=== PATIENT | female | born 1970 | race Caucasian/White ===

== ENCOUNTER 2016-07-21 07:12 | Emergency (ER) | payer OTHER ==
[2016-07-21 07:25] VITALS: BP 142/87; PULSE 78; RESP 20; TEMP 98.2; O2SAT 95
--- NOTE | 2016-07-21 07:51 | UCPHY ---
H & P Time Seen by Provider: 07/21/16 07:41 Patient Type: Established HPI/ROS: This patient presents with a chief complaint of left eye irritation associated with some watery discharge, redness and intermittent blurring. Symptoms began 3 days ago And have been associated with some nasal congestion minimal sore throat but no significant cough. She has not had a fever. Initially symptoms began in the left eye but now are involving the right although to a lesser degree. Smoking Status: Never smoked Physical Exam: This is a well-developed well-nourished female who is in no acute distress. She is alert, appropriate and has a normal mental status. There is slight injection of the conjunctiva on the left but none that I can detect on the right. There is no photophobia. There is no evidence of purulent discharge. Pupils are equal round reactive to light. Pharynx is normal, nose is normal and the neck is normal. Constitutional: Initial Vital Signs Temperature (C) 36.8 C 07/21/16 07:22 Heart Rate 78 07/21/16 07:22 Respiratory Rate 20 07/21/16 07:22 Blood Pressure 142/87 H 07/21/16 07:22 O2 Sat (%) 95 07/21/16 07:22 O2 Delivery Mode Room Air Allergies/Adverse Reactions: amoxicillin [Amoxicillin] Allergy (Mild, Verified 07/21/16 07:16) Rash erythromycin base Allergy (Mild, Verified 07/21/16 07:16) Other-Enter Comments azithromycin Allergy (Verified 07/21/16 07:16) Bleach (Sodium Hypochlorite) Allergy (Verified 07/21/16 07:16) shellfish derived Allergy (Verified 07/21/16 07:16) Home Medications: Medication Instructions Recorded Simvastatin [Zocor 10 mg] 06/15/12 Synthroid 03/13/14 Coq-10 04/05/16 Multivitamin 04/05/16 VITAMIN D 04/05/16 Probiotic 04/21/16 Gentamicin 0.3% [Gentak 0.3%] 2 drops EACHEYE Q4H #1 opht.btl 07/21/16 Medical Decision Making Differential Diagnosis: This patient probably has a viral conjunctivitis as opposed to an allergic problem is not clear currently. I find nothing that would suggest that this is a serious problem. Departure - Departure Disposition: Home, Routine, Self-Care Clinical Impression: Conjunctivitis Qualifiers: Conjunctivitis type: acute Acute conjunctivitis type: unspecified Laterality: bilateral Qualifier Code: (H10.33) Unspecified acute conjunctivitis, bilateral Condition: Good Instructions: Conjunctivitis (ED), How to Use Eye Drops (ED) Additional Instructions: If your symptoms have not improved in 3 or 4 days or if they have not completely resolved in 7 days you should be re-evaluated. If the meantime your symptoms worsen you should be seen right away. Referrals: Liz Hernandez MD [Primary Care Provider] - As per Instructions Prescriptions: Gentamicin 0.3% [Gentak 0.3%] 2 drops EACHEYE Q4H #1 opht.btl - PQRS PQRS Measurement: Not applicable
== END 2016-07-21 07:53 | disposition home or self-care (01) ==
LOC: CED 07:12
DX: H10.9 Unspecified conjunctivitis (principal)
CPT/HCPCS: 99214-PO; G0463-PO

== ENCOUNTER 2016-09-12 18:29 | Emergency (ER) | payer OTHER ==
[2016-09-12 18:44] VITALS: BP 132/75; PULSE 79; RESP 16; TEMP 98.2; O2SAT 95
--- NOTE | 2016-09-12 19:19 | UCPHY ---
H & P Time Seen by Provider: 09/12/16 19:01 Patient Type: Established HPI/ROS: This patient has a sore throat of 4 days duration. Intensity is 4/10 achy in nature. She has no other associated symptoms was concerned about potential strep because of exposure to a child with strep 2 weeks ago. She has partial relief from [id number] analgesics. No other exacerbating factors. ROS: No high fevers or chills. No significant fatigue. HEENT: No nasal congestion. No ear pain. Pulmonary: No cough. Integumentary: No skin rash GI: No nausea vomiting. 7 point ROS is otherwise negative. Smoking Status: Never smoked Physical Exam: Physical Exam Vital signs are normal. General: No acute distress HEENT: Nose: Clear discharge bilaterally. No sinus tenderness to percussion. Ears: External canals and tympanic membranes are clear with no erythema or abnormal findings bilaterally. Oropharynx: No erythema or exudates. No dysphonia. No drooling or stridor. Neck: Supple with no meningismus. No lymphadenopathy. Eyes: Pupils equal and react to light. Extraocular motions are intact. Lungs: Clear to auscultation bilaterally with no rales, rhonchi or wheeze. No respiratory distress. Cardiac: Regular rate and rhythm with no murmur gallop or rub Skin: No rash or pallor. Neuro: Alert with no focal deficits noted. Initial differential diagnosis: Viral pharyngitis versus strep pharyngitis Constitutional: Initial Vital Signs Temperature (C) 36.8 C 09/12/16 18:42 Heart Rate 79 09/12/16 18:42 Respiratory Rate 16 09/12/16 18:42 Blood Pressure 132/75 H 09/12/16 18:42 O2 Sat (%) 95 09/12/16 18:42 O2 Delivery Mode Room Air Allergies/Adverse Reactions: amoxicillin [Amoxicillin] Allergy (Mild, Verified 09/12/16 18:45) Rash erythromycin base Allergy (Mild, Verified 09/12/16 18:45) Other-Enter Comments azithromycin Allergy (Verified 09/12/16 18:45) Bleach (Sodium Hypochlorite) Allergy (Verified 09/12/16 18:45) shellfish derived Allergy (Verified 09/12/16 18:45) Home Medications: Medication Instructions Recorded Simvastatin [Zocor 10 mg] 06/15/12 Synthroid 03/13/14 Coq-10 04/05/16 Multivitamin 04/05/16 VITAMIN D 04/05/16 Probiotic 04/21/16 Medical Decision Making ED Course/Re-evaluation: Rapid strep is negative. I counseled the patient regarding viral pharyngitis. - Data Points Laboratory Results: 09/12/16 09/12/16 Unknown 18:50 Group A Strep Screen NEGATIVE (NEGATIVE) Group A Strep DNA Pending Departure - Departure Disposition: Home, Routine, Self-Care Clinical Impression: Viral pharyngitis Condition: Good Instructions: Pharyngitis (ED) Additional Instructions: Diagnosis: Viral pharyngitis Plan: Humidifier Ibuprofen and Tylenol for sore throat as needed. Gargle salt water Return for any significant worsening despite treatment plan - PQRS PQRS Measurement: NA
== END 2016-09-12 19:30 | disposition home or self-care (01) ==
LOC: CED 18:29
DX: J02.9 Acute pharyngitis, unspecified (principal)
CPT/HCPCS: 87880-PO; 99214-PO; G0463-PO

== ENCOUNTER 2017-04-22 15:00 | Emergency (ER) | payer OTHER ==
[2017-04-22 15:19] VITALS: RESP 20; TEMP 98.1
--- NOTE | 2017-04-22 15:30 | EDPHY ---
H & P Time Seen by Provider: 04/22/17 15:15 HPI/ROS: 46-year-old female presents complaining of right arm achiness. She states she had a small cut to her thumb several weeks ago that suddenly developed swelling and redness just over the last couple of days, she was seen at an urgent care where she was started on antibiotics. Her swelling and redness have markedly improved however she was told if she had pain in her arm she should seek further care. She denies red streaks up her arm she denies fever or chills she admits her redness and swelling or markedly improved since starting antibiotics approximately 36 hours ago. Review of systems As per HPI General no fever no chills no weakness HEENT no eye pain no eye discharge. No eye redness, no sore throat Respiratory no cough, no shortness of breath Cardiac no chest pain, no peripheral edema GI no abdominal pain, no diarrhea, no constipation, no nausea, no vomiting no flank pain, no hematuria, no dysuria Musculoskeletal positive myalgias, no joint pain Heme no easy bruising, no easy bleeding Endo no polyuria, no polydipsia Skin no rashes, no pruritus Neuro no syncope, no dizziness, no headaches Psych is no suicidal ideation, no homicidal ideation Past Medical/Surgical History: Hyperlipidemia Social History: Denies alcohol or drug use Smoking Status: Never smoked Physical Exam: 46-year-old female Alert and oriented in no acute distress nontoxic appearance, afebrile Atraumatic normocephalic Neck no JVD Lungs clear to auscultation, no respiratory distress Heart regular rate and rhythm Extremities no cyanosis clubbing edema Right hand-area outlined where prior cellulitis had been 48 hours ago, markedly improved slight erythema slight swelling Full range of motion of right thumb, good capillary refill No involvement of dorsum of hand, no lymphangitic streaks No palpable lymph nodes in axilla on right No swelling of right arm Constitutional: Initial Vital Signs Temperature (C) 36.7 C 04/22/17 15:15 Heart Rate 100 04/22/17 15:15 Respiratory Rate 20 04/22/17 15:15 Blood Pressure 149/95 H 04/22/17 15:15 O2 Sat (%) 93 04/22/17 15:15 O2 Delivery Mode Room Air Allergies/Adverse Reactions: amoxicillin [Amoxicillin] Allergy (Mild, Verified 04/22/17 15:14) Rash erythromycin base Allergy (Mild, Verified 04/22/17 15:14) Other-Enter Comments azithromycin Allergy (Verified 04/22/17 15:14) Bleach (Sodium Hypochlorite) Allergy (Verified 04/22/17 15:14) shellfish derived Allergy (Verified 04/22/17 15:14) Home Medications: Medication Instructions Recorded Simvastatin [Zocor 10 mg] 06/15/12 Synthroid 03/13/14 Coq-10 04/05/16 Multivitamin 04/05/16 VITAMIN D 04/05/16 Probiotic 04/21/16 Medical Decision Making ED Course/Re-evaluation: Patient seen and evaluated for right arm pain following the initiation of antibiotics for a localized cellulitis to the right thumb approximately 36 hours ago. Physical exam she is a markedly improving cellulitis, no lymphangitic streaks, no lymph nodes in the axilla and no skin changes to the right arm. Impression Improving right thumb cellulitis Plan Continue current antibiotics Education on reasons to return including lymphangitic streaks, new rash, no swelling, worsening pain. Follow up with primary care physician Differential Diagnosis: Cellulitis, lymphangitis, necrotizing fasciitis Departure - Departure Disposition: Home, Routine, Self-Care Clinical Impression: Arm pain Condition: Good Instructions: Cellulitis (ED) Referrals: Liz Hernandez MD [Primary Care Provider] - As per Instructions
[2017-04-22 15:44] VITALS: BP 145/78; PULSE 95; O2SAT 94
== END 2017-04-22 15:44 | disposition home or self-care (01) ==
LOC: CED 15:00
DX: M79.601 Pain in right arm (principal)

== ENCOUNTER 2017-04-26 15:03 | Emergency (ER) | payer OTHER ==
[2017-04-26 15:19] VITALS: BP 148/89; PULSE 80; RESP 16; TEMP 97.7; O2SAT 95
--- NOTE | 2017-04-26 15:37 | EDPHY ---
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 Patient denies any other pain or injury. Her last tetanus shot was within 10 years. REVIEW OF SYSTEMS: As in HPI, and all other systems reviewed and are negative Smoking Status: Never smoked Physical Exam: General Appearance: Alert and no distress. Eyes: Pupils equal and round no injection. Musculoskeletal: Neck is supple and nontender. Extremities: Right index finger with 1 cm laceration along ulnar side between PIP and PIP joint, full range of motion at the PIP and PIP with flexion and extension against resistance without difficulty, distal sensation intact, distal cap refill less than 3 seconds. Skin: No rashes or lesions except as described above. Constitutional: Initial Vital Signs Temperature (C) 36.5 C 04/26/17 15:15 Heart Rate 80 04/26/17 15:15 Respiratory Rate 16 04/26/17 15:15 Blood Pressure 148/89 H 04/26/17 15:15 O2 Sat (%) 95 04/26/17 15:15 O2 Delivery Mode Room Air Allergies/Adverse Reactions: amoxicillin [Amoxicillin] Allergy (Mild, Verified 04/26/17 15:14) Rash erythromycin base Allergy (Mild, Verified 04/26/17 15:14) Other-Enter Comments azithromycin Allergy (Verified 04/26/17 15:14) Bleach (Sodium Hypochlorite) Allergy (Verified 04/26/17 15:14) shellfish derived Allergy (Verified 04/26/17 15:14) Home Medications: Medication Instructions Recorded Simvastatin [Zocor 10 mg] 06/15/12 Synthroid 03/13/14 Coq-10 04/05/16 Multivitamin 04/05/16 VITAMIN D 04/05/16 Probiotic 04/21/16 Keflex 04/26/17 MDM/Departure - [facility] ED Course/Re-evaluation: Procedure: Laceration repair. Verbal consent was obtained from the patient. The 1 cm laceration on the right index finger was anesthetized in the usual fashion with a finger block using 0.25% Marcaine. The wound was irrigated, draped and explored to its base. There were no deep structures involved. No tendon injury was identified. The wound was repaired with 3 x 5 0 nylon sutures. The wound repair was uncomplicated. The procedure was performed by myself. - Depart Disposition: Home, Routine, Self-Care Clinical Impression: Laceration Condition: Good Instructions: Care For Your Stitches (ED), Finger Laceration (ED) Additional Instructions: You were seen by Dr. Faye Souza today. Please have your sutures removed in 7-10 days. Remove the bandage after 24 hours and after that you may wash her hands with soap and water and shower as usual. Watch for signs and symptoms of infection and be seen immediately develops any of these. Return for any worsening or new concerns. Referrals: Liz Hernandez MD [Primary Care Provider] - As per Instructions
== END 2017-04-26 16:26 | disposition home or self-care (01) ==
LOC: CED 15:03
PROC: 0HQFXZZ Repair Right Hand Skin, External Approach (ICD-10-PCS; principal; 2017-04-26)
DX: S61.210A Laceration without foreign body of right index finger without damage to nail, initial encounter (principal); W26.8XXA Contact with other sharp object(s), not elsewhere classified, initial encounter

== ENCOUNTER 2017-12-04 09:27 | Emergency (ER) | payer OTHER ==
[2017-12-04 09:47] VITALS: BP 152/80
--- NOTE | 2017-12-04 09:55 | EDPHY ---
H & P Time Seen by Provider: 12/04/17 09:34 HPI/ROS: This patient reports mechanical fall when she slipped on a too sure that was left on stairs in her home falling down 3 [address]ed stairs onto her buttock with a FOOSH mechanism injury to the right 1st metacarpal area radiating into the radial aspect of her wrist. She reports 5/10 pain for this injury that occurred 1 hr prior to arrival. She came in by private vehicle for further evaluation to rule out fracture. She denies any other significant injuries from the fall. She has not taken any medications for this ailment. She reports worsening with movement and no other exacerbating or alleviating factors. ROS: Neuro: No new numbness or tingling to the affected extremity. She did not strike her head. Musculoskeletal: No midline neck or back pain from the incident. No other complaints. Integumentary: No lacerations or abrasions from the fall. 5 point ROS is otherwise negative. Past Medical/Surgical History: Obesity Hypothyroidism Hypercholesterolemia Smoking Status: Never smoked Physical Exam: Physical Exam Vital signs are normal. General: No acute distress HEENT: Atraumatic. Eyes: Pupils equal and react to light. Extraocular motions are intact. Cervical: No midline tenderness Back: No midline tenderness Lungs: No chest wall tenderness. No respiratory distress. Cardiac: Brisk capillary refill is intact throughout. Pulses are 2+ and symmetric in the affected extremity. Musculoskeletal: Atraumatic normal except for right upper extremity Right upper extremity: Patient has ecchymosis, swelling and tenderness to the 1st metacarpal area of the thumb extending into the scaphoid and distal radial aspect of wrist. No scaphoid tenderness/anatomical tenderness but she has pain in the area with axial loading of the thumb. Mild limitation range of motion of the wrist and thumb due to pain. No other traumatic findings on hand or wrist exam. Skin: No rash or pallor. No lacerations or abrasions Neuro: Alert and oriented x3 with no sensorimotor deficits in the affected extremity Initial differential diagnosis: Thumb sprain, thumb fracture, scaphoid fracture , distal radius fracture, wrist sprain, hand/wrist contusion Constitutional: Initial Vital Signs Temperature (C) 36.4 C 12/04/17 09:41 Heart Rate 77 12/04/17 09:41 Respiratory Rate 14 12/04/17 09:41 Blood Pressure 152/80 H 12/04/17 09:41 O2 Sat (%) 93 12/04/17 09:41 O2 Delivery Mode Room Air Allergies/Adverse Reactions: amoxicillin [Amoxicillin] Allergy (Mild, Verified 12/04/17 09:39) Rash erythromycin base Allergy (Mild, Verified 12/04/17 09:39) Other-Enter Comments azithromycin Allergy (Verified 12/04/17 09:39) Bleach (Sodium Hypochlorite) Allergy (Verified 12/04/17 09:39) shellfish derived Allergy (Verified 12/04/17 09:39) Home Medications: Medication Instructions Recorded Simvastatin [Zocor 10 mg] 06/15/12 Synthroid 03/13/14 Coq-10 04/05/16 Multivitamin 04/05/16 VITAMIN D 04/05/16 Probiotic 04/21/16 MDM/Departure - MDM Imaging Results: Imaging Impressions Wrist X-Ray 12/04/17 09:46 Impression: No evidence for acute osseous abnormality right wrist. Hand x-rays: Three-view: No fractures by my interpretation Wrist x-rays: No acute fractures by my interpretation Imaging: I viewed and interpreted images myself ED Course/Re-evaluation: The patient declined analgesics. Splint: Velcro thumb spica splint placed by our tech according to my instructions. - Depart Disposition: Home, Routine, Self-Care Clinical Impression: Sprain of hand, thumb, right Qualifiers: Encounter type: initial encounter Sprain of finger site: unspecified site Qualified Code(s): S63.601A - Unspecified sprain of right thumb, initial encounter Hand contusion Qualifiers: Encounter type: initial encounter Laterality: right Qualified Code(s): S60.221A - Contusion of right hand, initial encounter Condition: Good Instructions: Hand Sprain (ED) Additional Instructions: Diagnoses: 1. Thumb sprain 2. Hand contusion Plan: Ice 20 min at a time to 3 times a day until symptoms improve Ibuprofen Tylenol in addition Velcro thumb spica splint until symptoms improve-likely over the next 7-10 days. Follow up with orthopedic physician listed below if he developed any ongoing symptoms or concerns despite the treatment plan. Referrals: Liz Hernandez MD [Primary Care Provider] - As per Instructions Crow Romero MD [Medical Doctor] - As per Instructions
== END 2017-12-04 10:46 | disposition home or self-care (01) ==
LOC: CED 09:27
DX: S63.601A Unspecified sprain of right thumb, initial encounter (principal); S60.221A Contusion of right hand, initial encounter; W10.9XXA Fall (on) (from) unspecified stairs and steps, initial encounter
CPT/HCPCS: 73110-PO; 73130-PO; L3807

== ENCOUNTER 2017-12-08 13:00 | Emergency (ER) | payer OTHER ==
[2017-12-08] MEDS ORDERED: MECLIZINE HCL 25 MG TAB PO ONE (13:25)
[2017-12-08] MEDS ORDERED: ONDANSETRON DISINTEGRATING 4 MG TAB PO ONE ×2 (13:25→20:41)
[2017-12-08] MEDS ORDERED: ONDANSETRON DISINTEGRATING 4 MG TAB ONE (13:25)
[2017-12-08] MEDS ORDERED: MECLIZINE HCL 25 MG TAB ONE (13:26)
[2017-12-08 20:40] VITALS: BP 148/107
--- NOTE | 2017-12-09 07:37 | EDPHY ---
H & P Stated Complaint: VERTIGO Time Seen by Provider: 12/08/17 13:10 HPI/ROS: HISTORY OF PRESENT ILLNESS: Patient is a 45-year-old female who has a history of benign positional vertigo. She states that when she woke up this morning she felt vertiginous similar to her previous episodes. She has been prescribed meclizine in the past with moderate improvement. Her symptoms are primarily when she looks to the right. She has not had any focal weakness numbness or deficits. No slurred speech. No headache. No trauma. No fever or infection. She did have a cold last week but it is now resolved. She states that her vertigo was more intense this morning and is now mostly gone. She called the doctor's office who recommended she come here for evaluation. She also has mild nausea but no vomiting. No tinnitus. No blurry vision. REVIEW OF SYSTEMS: Constitutional: denies: chills, fever, recent illness, recent injury EENTM: denies: blurred vision, double vision, nose congestion Respiratory: denies: cough, shortness of breath Cardiac: denies: chest pain, irregular heart rate, lightheadedness, palpitations Gastrointestinal/Abdominal: denies: abdominal pain, diarrhea, nausea, vomiting, blood streaked stools Genitourinary: denies: dysuria, frequency, hematuria, pain Musculoskeletal: denies: joint pain, muscle pain Skin: denies: lesions, rash, jaundice, bruising Neurological: See HPI denies: headache, numbness, paresthesia, tingling, weakness Hematologic/Lymphatic: denies: blood clots, easy bleeding, easy bruising Immunologic/allergic: denies: HIV/AIDS, transplant EXAM: GENERAL: Well-appearing, well-nourished and in no acute distress. HEAD: Atraumatic, normocephalic. EYES: Nystagmus fast component to the right, fatigable, Pupils equal round and reactive to light, extraocular movements intact, sclera anicteric, conjunctiva are normal. ENT: TMs normal, nares patent, oropharynx clear without exudates. Moist mucous membranes. NECK: Normal range of motion, supple without lymphadenopathy or JVD. LUNGS: Breath sounds clear to auscultation bilaterally and equal. No wheezes rales or rhonchi. HEART: Regular rate and rhythm without murmurs, rubs or gallops. ABDOMEN: Soft, nontender, normoactive bowel sounds. No guarding, no rebound. No masses appreciated. BACK: No CVA tenderness, no spinal tenderness, step-offs or deformities EXTREMITIES: Normal range of motion, no pitting or edema. No clubbing or cyanosis. NEUROLOGICAL: Cranial nerves II through XII grossly intact. Normal speech, normal gait. 5/5 strength, normal movement in all extremities, normal sensation PSYCH: Normal mood, normal affect. SKIN: Warm, dry, normal turgor, no visible rashes or lesions. Source: Patient Exam Limitations: No limitations - Personal History Current Tetanus Diphtheria and Acellular Pertussis (TDAP): Yes Tetanus Vaccine Date: 2016 - Medical/Surgical History Hx Asthma: No Hx Chronic Respiratory Disease: No Hx Diabetes: No Hx Cardiac Disease: No Hx Renal Disease: No Hx Cirrhosis: No Hx Alcoholism: No Hx HIV/AIDS: No Hx Splenectomy or Spleen Trauma: No Other PMH: hypothyroid,high cholesterol, C5-6 fusion 2014, tonsillectomy, C- section. THYROID,HYPERCHOL, SINUS INF, TONSILS, C5-6 FUSION, C-SECT X2 - Family History Significant Family History: No pertinent family hx - Social History Smoking Status: Never smoked Alcohol Use: Sober Drug Use: None Constitutional: Initial Vital Signs Temperature (C) 36.7 C 12/08/17 13:10 Heart Rate 79 12/08/17 13:10 Respiratory Rate 18 12/08/17 13:10 Blood Pressure 148/107 H 12/08/17 13:10 O2 Sat (%) 96 12/08/17 13:10 O2 Delivery Mode Room Air Allergies/Adverse Reactions: amoxicillin [Amoxicillin] Allergy (Mild, Verified 12/08/17 20:36) Rash erythromycin base Allergy (Mild, Verified 12/08/17 20:36) Other-Enter Comments azithromycin Allergy (Verified 12/08/17 20:36) Bleach (Sodium Hypochlorite) Allergy (Verified 12/08/17 20:36) shellfish derived Allergy (Verified 12/08/17 20:36) Home Medications: Medication Instructions Recorded Simvastatin [Zocor 10 mg] 06/15/12 Synthroid 03/13/14 Coq-10 04/05/16 Multivitamin 04/05/16 VITAMIN D 04/05/16 Probiotic 10/24/16 Medical Decision Making Procedures: Procedure: The patient was placed through the Aayush maneuver starting to the right. Her symptoms improved. ED Course/Re-evaluation: MDM: Placed the patient through the Aayush maneuver. Her symptoms improved. She does have mild persistent nausea. I will treat her with Zofran and meclizine. I will refer her to ENT for follow-up. She is happy with this plan and declines further workup or testing. She is currently asymptomatic. She feels comfortable using the Aayush maneuver at home. Patient was given prescriptions for Zofran and meclizine. Differential Diagnosis: Partial list of the Differential diagnosis considered include but were not limited to; benign positional paroxysmal vertigo, vestibular neuritis and although unlikely based on the history and physical exam, I also considered vascular insufficiency, CVA, infection, tumor, seizure patient down time records down time patient notes. I discussed these differential diagnoses and the plan with the patient as well as the usual and expected course. The patient understands that the diagnosis is provisional and that in medicine we are not always correct and that further workup is often warranted. Usual and customary warnings were given. All of the patient's questions were answered. The patient was instructed to return to the emergency department should the symptoms at all worsen or return, otherwise to followup with the physician as we discussed. - Data Points Medications Given: Discontinued Medications Meclizine HCl (Meclizine Hcl) 50 mg PO EDNOW ONE Stop: 12/08/17 13:26 Last Admin: 12/08/17 13:25 Dose: 50 mg Ondansetron HCl (Zofran Odt) 4 mg PO EDNOW ONE Stop: 12/08/17 20:42 Last Admin: 12/08/17 20:44 Dose: Not Given Ondansetron HCl (Zofran Odt) 4 mg PO EDNOW ONE Stop: 12/08/17 13:26 Last Admin: 12/08/17 13:25 Dose: 4 mg Departure - Departure Disposition: Home, Routine, Self-Care Clinical Impression: Benign paroxysmal positional vertigo Qualifiers: Laterality: right Qualified Code(s): H81.11 - Benign paroxysmal vertigo, right ear Condition: Fair Instructions: Benign Paroxysmal Positional Vertigo (ED) Referrals: Liz Hernandez MD [Primary Care Provider] - As per Instructions
== END 2017-12-08 13:50 | disposition home or self-care (01) ==
LOC: CED 13:00
DX: H81.11 Benign paroxysmal vertigo, right ear (principal)

== ENCOUNTER → 2018-02-10 | Outpatient (CLI) | payer OTHER | DX: Z47.89 Encounter for other orthopedic aftercare (principal); Z98.1 Arthrodesis status ==